=== PATIENT | female | born 1975 | race Caucasian/White ===

== ENCOUNTER 2018-12-11 06:26 | Emergency (ER) | payer OTHER ==
[~2018-12-11] VITALS: Ht 165.1 cm; Wt 91.6 kg
[2018-12-11 08:33] VITALS: BP 129/70
== END 2018-12-11 08:33 | disposition home or self-care (01) ==
LOC: ED 06:26
DX: A08.4 Viral intestinal infection, unspecified (principal); Z88.6 Allergy status to analgesic agent; Z88.5 Allergy status to narcotic agent
CPT/HCPCS: Q0162